=== PATIENT | female | born 1995 | race Caucasian/White ===

== ENCOUNTER 2017-02-08 21:24 | Emergency (ER) | payer OTHER ==
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
[2017-02-09 04:40] VITALS: BP 102/53
== END 2017-02-09 04:25 | disposition home or self-care (01) ==
LOC: ER 21:24
DX: S16.1XXA Strain of muscle, fascia and tendon at neck level, initial encounter (principal); S39.012A Strain of muscle, fascia and tendon of lower back, initial encounter; M54.2 Cervicalgia; V43.62XA Car passenger injured in collision with other type car in traffic accident, initial encounter
CPT/HCPCS: 72040; 72110; 81025; 99284

== ENCOUNTER 2018-12-15 04:58 | Emergency (ER) | payer BC, OTHER ==
[2018-12-15] MEDS ORDERED: METOCLOPRAMIDE HCL INJ/PF 10 MG/2 ML SDV IV ONE (05:15)
--- NOTE | 2018-12-15 05:16 | ER Document Report ---
ED Seizure - General Stated Complaint: POSS SEIZURE Time Seen by Provider: 12/15/18 05:03 Notes: Patient is a 23-year-old female that comes to the emergency department for chief complaint of seizure-like activity. She comes by EMS. Boyfriend states that he awoke to her convulsing in the bed and he could not wake her up, he states he became afraid and started CPR and did perform compressions. He states that she started to respond several minutes after the initial convulsion and the overall seizure period was less than 10 minutes. He is unsure how long this lasted. Patient became much more alert with EMS, has remained alert since, is oriented but cannot recall the details of tonight after going to sleep. Boyfriend states they had intercourse, smokes weed, but she did not drink alcohol reportedly. Patient agrees with this. Patient denies ever having seizure in the past, is not on any daily medications, denies recreational drugs other than marijuana, denies taking any daily medications. Patient states that currently she has a headache and her lower lip hurts but she denies any other symptoms at this time. Patient did not have a fall, remained in the bed during seizure per her boyfriend. - Related Data Allergies/Adverse Reactions: cephrozile Allergy (Uncoded 02/09/17 02:27) Past Medical History - General Information source: Patient, Relative - Boyfriend, Emergency Med Personnel - Social History Smoking Status: Never Smoker Frequency of alcohol use: Rare Drug Abuse: Marijuana Lives with: Family Family History: Reviewed & Not Pertinent Patient has suicidal ideation: No Patient has homicidal ideation: No Renal/ Medical History: Denies: Hx Peritoneal Dialysis Psychiatric Medical History: Reports: Hx Depression - anxiety - Immunizations Immunizations up to date: Yes Review of Systems - Review of Systems Constitutional: No symptoms reported EENT: No symptoms reported Cardiovascular: See HPI Respiratory: No symptoms reported Gastrointestinal: No symptoms reported Genitourinary: No symptoms reported Female Genitourinary: No symptoms reported Musculoskeletal: See HPI Skin: No symptoms reported Hematologic/Lymphatic: No symptoms reported Neurological/Psychological: See HPI Physical Exam - Vital signs Vitals: Temp Pulse Resp BP Pulse Ox 98.4 F 81 18 110/68 100 12/15/18 05:01 12/15/18 05:01 12/15/18 05:01 12/15/18 05:01 12/15/18 05:01 - Notes Notes: GENERAL: Drowsy but well-appearing, interacts well HEAD: Normocephalic, atraumatic. EYES: Pupils equal, round, and reactive to light. Extraocular movements intact. ENT: Oral mucosa moist, tongue midline. Oropharynx unremarkable. Airway patent. Nares patent, no nasal septal hematoma, TM's intact. NECK: Full range of motion. Supple. Trachea midline. LUNGS: Clear to auscultation bilaterally, no wheezes, rales, or rhonchi. No respiratory distress. Minimal tenderness to the chest wall without signs of trauma or swelling. HEART: Regular rate and rhythm. No murmur ABDOMEN: Soft, non-tender. Non-distended. Bowel sounds present in all 4 quadran ts. GENITOURINARY: Deferred EXTREMITIES: Moves all 4 extremities spontaneously. No edema, normal radial and dorsalis pedis pulses bilaterally. No cyanosis. BACK: no cervical, thoracic, lumbar midline tenderness. No saddle anesthesia, normal distal neurovascular exam. Moves all extremities in full range of motion. NEUROLOGICAL: Slightly drowsy but still alert and oriented to person and time. Confused to events. Normal speech. Cranial nerves II through XII grossly intact. PSYCH: Normal affect, normal mood. SKIN: Warm, dry, normal turgor. No rashes or lesions noted. Course - Re-evaluation Re-evalutation: Patient is slightly drowsy, complains of a headache, I do believe she is postictal and had a seizure based on the description of the events. No signs of trauma. She is mildly tender over her chest wall but no chest pain otherwise. No signs of trauma. Chest x-ray performed and is negative, EKG unremarkable, CAT scan without any acute findings including intracranial mass or bleed with her first time seizure in her 20s. CBC, chemistry, magnesium, urinalysis unremarkable. Alcohol negative. Urine drug screen does show cocaine and marijuana. I discussed with patient, she states she used cocaine over 48 hours ago. I do believe this because she is not hypertensive, tachycardic, does not have dilated pupils, and she is sleeping but easily aroused. On reevaluation her headache is gone after small dose of Reglan. She has no complaints and she is requesting to leave. I discussed the extreme dangers of cocaine and she states that she will not be using this in the future. Her mother did come to bedside, mother states she has never had a seizure. I discussed at length her work-up, precautions, and follow-up. I discussed the patient with Dr. Camacho. Stable at time of discharge. - Vital Signs Vital signs: Temp Pulse Resp BP Pulse Ox 98.2 F 81 17 90/49 L 98 12/15/18 07:28 12/15/18 05:01 12/15/18 07:21 12/15/18 07:21 12/15/18 07:21 - Laboratory Result Diagrams: 12/15/18 04:40 12/15/18 04:40 Laboratory results interpreted by me: 12/15/18 12/15/18 04:40 04:40 WBC 14.8 H Lymph % (Auto) 9.8 L Absolute Neuts (auto) 12.4 H Seg Neutrophils % 83.8 H Sodium 146.2 H Chloride 111 H Discharge - Discharge Clinical Impression: Seizure Condition: Stable Disposition: HOME, SELF-CARE Additional Instructions: Your evaluation is consistent with a seizure. However your work-up is reassuring. You must be cleared by neurology to drive and I recommend avoiding any situation where if you have a seizure you would become at risk (i.e. swimming, bathing by yourself in a tub, etc.). Event of a seizure lasting 5 minutes or more used as prescribed suppository. Return for any concerning symptoms including fever, severe headache, seizure, or any other concerning or worsening symptoms. Follow-up closely with the neurology referral listed below. [facility] [address] [place] [id number] Prescriptions: Diazepam [Diastat Acudial] 1 each RC ASDIR PRN #1 kit PRN Reason:
[2018-12-15 05:32] LABS: ABSOLUTE LYMPHOCYTES (AUTO) 1.5 10^3/uL (0.5-4.7); ABSOLUTE MONOCYTES (AUTO) 0.9 10^3/uL (0.1-1.4); ABSOLUTE NEUT (AUTO) 12.4 10^3/uL (1.7-8.2); BASOPHILS % (AUTO) 0.3 % (0-2); HEMATOCRIT 40.2 % (36.0-47.0); HEMOGLOBIN 13.1 g/dL (12.0-15.5); LYMPHOCYTES % (AUTO) 9.8 % (13-45); MEAN CORPUSCULAR HEMOGLOBIN 29.3 pg (27.0-33.4); MEAN CORPUSCULAR HGB CONC 32.7 g/dL (32.0-36.0); MEAN CORPUSCULAR VOLUME 90 fl (80-97); MONOCYTES % (AUTO) 6.1 % (3-13); PLATELET COUNT 215 10^3/uL (150-450); RED BLOOD COUNT 4.48 10^6/uL (3.72-5.28); RED CELL DISTRIBUTION WIDTH 13.8 % (11.5-14.0); SEGMENTED NEUTROPHILS % (AUTO) 83.8 % (42-78); TOTAL CELLS COUNTED % (AUTO) 100 %; WHITE BLOOD COUNT 14.8 10^3/uL (4.0-10.5)
[2018-12-15 05:36] LABS: ALBUMIN 4.6 g/dL (3.5-5.0); ALKALINE PHOSPHATASE 70 U/L (38-126); ANION GAP 11 (5-19); ASPARTATE AMINO TRANSFERASE 21 U/L (14-36); BILIRUBIN,DIRECT 0.1 mg/dL (0.0-0.4); BILIRUBIN,TOTAL 0.3 mg/dL (0.2-1.3); BLOOD UREA NITROGEN 11 mg/dL (7-20); CALCIUM 9.8 mg/dL (8.4-10.2); CARBON DIOXIDE 24 mmol/L (22-30); CHLORIDE 111 mmol/L (98-107); GLUCOSE 88 mg/dL (75-110); TOTAL PROTEIN 7.7 g/dL (6.3-8.2)
[2018-12-15 05:51] LABS: ALCOHOL < 10 mg/dL (NONE DETECTED)
--- NOTE | 2018-12-15 06:21 | RADIOLOGY REPORT (SQ) ---
EXAM DESCRIPTION: CT HEAD WITHOUT IV CONTRAST COMPLETED DATE/TME: 12/15/2018 05:15 CLINICAL HISTORY: 23 years Female, new onset seizure COMPARISON: None. TECHNIQUE: No contrast. Coronal and sagittal reformat. This exam was performed according to our departmental dose-optimization program, which includes automated exposure control, adjustment of the mA and/or kV according to patient size and/or use of iterative reconstruction technique. FINDINGS: No hemorrhage or infarct. No mass, mass effect, or midline shift. Brain and extra-axial structures appear intact. IMPRESSION: Normal CT of the head.
[2018-12-15 06:22] LABS: APPEARANCE,URINE CLEAR; BILIRUBIN,URINE NEGATIVE (NEGATIVE); COLOR,URINE YELLOW; GLUCOSE, URINE NEGATIVE (NEGATIVE); KETONES,URINE NEGATIVE (NEGATIVE); LEUKOCYTE ESTERASE,URINE NEGATIVE (NEGATIVE); NITRITE,URINE NEGATIVE (NEGATIVE); PROTEIN,URINE NEGATIVE (NEGATIVE); URINE SPECIFIC GRAVITY 1.009; UROBILINOGEN,URINE NEGATIVE mg/dL (<2.0)
--- NOTE | 2018-12-15 06:35 | RADIOLOGY REPORT (SQ) ---
Chest 2 view on 12/15/2018 at 6:04 AM CLINICAL INDICATION: Rib pain status post CPR COMPARISON: None FINDINGS: The lungs are clear. Cardiac, hilar and mediastinal contours are within normal limits. Pulmonary vascularity is within normal limits. No bony abnormality is noted. No definite acute rib fracture is noted. There is no pneumothorax. IMPRESSION: No active disease.
[2018-12-15 06:48] LABS: URINE AMPHETAMINES SCREEN NEGATIVE; URINE BARBITURATES SCREEN NEGATIVE; URINE BENZODIAZEPINES SCREEN NEGATIVE; URINE COCAINE SCREEN UNCONFIRMED POSITIVE; URINE MARIJUANA (THC) SCREEN UNCONFIRMED POSITIVE; URINE METHADONE SCREEN NEGATIVE; URINE PHENCYCLIDINE SCREEN NEGATIVE
[2018-12-15 07:28] VITALS: BP 90/49
--- NOTE | 2018-12-15 13:09 | EKG REPORT ---
SEVERITY:- NORMAL ECG - SINUS RHYTHM : Confirmed by: Dejah Horn MD 15-Dec-2018 13:08:49
== END 2018-12-15 07:28 | disposition home or self-care (01) ==
LOC: ER 04:58
DX: R56.9 Unspecified convulsions (principal); F12.90 Cannabis use, unspecified, uncomplicated
CPT/HCPCS: 93005; 99285; 96374; 36415; 80307 ×2; 83735; 84703; 85025; 80053; 81001; 71046; 70450; 93010; J2765